=== PATIENT | female | born 1955 | race Two or more races ===

== ENCOUNTER 2018-01-28 17:19 | Emergency (ER) | payer SELFPAY ==
[~2018-01-28] VITALS: Ht 167.6 cm; Wt 135.0 kg
[2018-01-28] MEDS ORDERED: FERR-89 PO (17:28)
[2018-01-28] MEDS ORDERED: ATOR10TA84 PO (17:28)
[2018-01-28 22:08] VITALS: BP 141/79
== END 2018-01-28 22:12 | disposition home or self-care (01) ==
LOC: EMS 17:21
DX: S93.402A Sprain of unspecified ligament of left ankle, initial encounter (principal); R03.0 Elevated blood-pressure reading, without diagnosis of hypertension; E78.00 Pure hypercholesterolemia, unspecified; Z90.710 Acquired absence of both cervix and uterus; Z79.899 Other long term (current) drug therapy; X50.9XXA Other and unspecified overexertion or strenuous movements or postures, initial encounter; Y93.89 Activity, other specified; Y92.098 Other place in other non-institutional residence as the place of occurrence of the external cause; Y99.8 Other external cause status
CPT/HCPCS: 29515; 99284

== ENCOUNTER 2021-07-07 14:18 | Emergency (ER) | payer MEDICARE, OTHER ==
[~2021-07-07] VITALS: Ht 167.6 cm; Wt 140.9 kg
[~2021-07-07 14:18] MED LIST: ATOR10TA84 PO; FERR-89 PO
[2021-07-07] MEDS ORDERED: ACETAMINOPHEN 325 MG TABLET PO ONE (16:00)
[2021-07-07 17:16] VITALS: BP 118/65
== END 2021-07-07 17:19 | disposition home or self-care (01) ==
LOC: EMS 14:21
DX: S13.4XXA Sprain of ligaments of cervical spine, initial encounter (principal); M25.561 Pain in right knee; R51.9 Headache, unspecified; E78.00 Pure hypercholesterolemia, unspecified; Z90.710 Acquired absence of both cervix and uterus; V49.9XXA Car occupant (driver) (passenger) injured in unspecified traffic accident, initial encounter; Y93.89 Activity, other specified; Y92.89 Other specified places as the place of occurrence of the external cause; Y99.8 Other external cause status
CPT/HCPCS: 72040; 99283